=== PATIENT | male | born 1995 | race Caucasian/White ===

== ENCOUNTER 2022-01-02 17:45 | Emergency (ER) | payer SELFPAY ==
[~2022-01-02] VITALS: Ht 182.9 cm; Wt 63.5 kg
--- NOTE | 2022-01-02 17:56 | NUR ---
PATIENT [id number] FRM HOME, "ADMITS TO ETOH, POSSIBLE OD AND SMOKE INHALATION FROM BURNING BUILDING". CURRENTLY STBALE ON RA WITH NO SIGNS OF DISTRESS NOTED. PLACED ON MONITOR. PATIENT AWAITING TO BE SEEN BY MD. WILL CONTINUE TO MONITOR
--- NOTE | 2022-01-02 17:57 | NUR ---
PATIENT IS ON A HOLD WITH [employer] AT BEDSIDE.
[2022-01-02 19:52] LABS: BASOPHILS % (AUTO) 0.5 % (0.0-2.0); HEMATOCRIT 45 % (39-51); HEMOGLOBIN 15.3 g/dL (13.5-17.5); LYMPHOCYTES # (AUTO) 0.9 K/uL (0.8-4.8); LYMPHOCYTES % (AUTO) 10.2 % (20.0-44.0); MEAN CORPUSCULAR HGB CONC 34 g/dl (31.0-36.0); MEAN CORPUSCULAR VOLUME 81 fL (80-96); MONOCYTES # (AUTO) 0.2 K/uL (0.1-1.30); MONOCYTES % (AUTO) 2.5 % (2.0-12.0); NEUTROPHILS % (AUTO) 86.8 % (43.0-81.0); PLATELET COUNT (AUTO) 193 K/uL (150-450); WHITE BLOOD COUNT (AUTO) 9.2 K/uL (4.3-11.0)
[2022-01-02 19:53] LABS: CALCIUM, SERUM 9.4 mg/dL (8.5-10.1); CARBON DIOXIDE 28 mmol/L (21-32); CHLORIDE 102 mmol/L (98-107); GLUCOSE 95 mg/dL (74-106); POTASSIUM 4.6 mmol/L (3.5-5.1); SODIUM SERUM 139 mmol/L (136-145); UREA NITROGEN, BLOOD 17 mg/dL (7-18)
[2022-01-02 20:01] LABS: ALANINE AMINOTRANSFERASE 25 U/L (12-78); ALBUMIN 4.8 g/dL (3.4-5.0); ALCOHOL, BLOOD < 3 mg/dL (0-0); ALKALINE PHOSPHATASE 73 U/L (46-116); ASPARTATE AMINOTRANSFERASE 19 U/L (15-37); BILIRUBIN,DIRECT 0.2 mg/dL (0.0-0.2); BILIRUBIN,TOTAL 1.2 mg/dL (0.2-1.0); TOTAL PROTEIN, SERUM 8.5 g/dL (6.4-8.2)
[2022-01-02 20:05] LABS: ACETAMINOPHEN < 2 ug/ml (10-30)
[2022-01-02 20:14] LABS: ABG BASE EXCESS -4.2 mmol/L; ABG OXYGEN SATURATION 96.5 % (92.0-98.5); ABG PCO2 27.2 mmHg (35.0-45.0); ABG PH 7.444 (7.350-7.450); ABG PO2 86.1 mmHg (75.0-100.0); AaDO2 31.1 mmHg; MetHb 0.2 % (0.0-1.5); O2Hb 93.4 % (94.0-97.0); SITE, ABG Left Radial; VENT MODE, BG ROOM AIR
--- NOTE | 2022-01-02 21:02 | NUR ---
COVID SWAB COLLECTED
--- NOTE | 2022-01-02 21:34 | NUR ---
URINAL PROVIDED TO PT
--- NOTE | 2022-01-02 21:36 | NUR ---
URINE SAMPLE COLLECTED AND SENT TO LAB
[2022-01-02 22:06] LABS: BILIRUBIN,URINE NEGATIVE (NEGATIVE); COLOR,URINE YELLOW (YELLOW); LEUKOCYTE ESTERASE ,URINE NEGATIVE (NEGATIVE); NITRITE, URINE NEGATIVE (NEGATIVE); PH,URINE 6.5 (5.0-8.0); PROTEIN,URINE NEGATIVE (NEGATIVE); UGLUCOSE NEGATIVE (NEGATIVE); UROBILINOGEN,URINE 0.2 EU/dL (0.2)
--- NOTE | 2022-01-03 01:01 | NUR ---
PT IS SLEEPING, EASILY AROUSABLE WITH VERBAL STIMULI. CONNECTED TO MONITOR. SITTER WITHIN SIGHT. WILL CONTINUE TO MONITOR.
--- NOTE | 2022-01-03 02:15 | NUR ---
SEEN AND EVALUATED BY LYUBOV SAINZ
--- NOTE | 2022-01-03 10:57 | NUR ---
resource management planner faxed clinicals to [facility] [[id number], [place] [address] tel: ; fax:[phone] [facility] TEL: [phone] fax: [phone] [facility]:take [facility]([place]medicare/ tel:[phone] FAX:[phone]; [phone] [facility]: TEL: [phone] [facility] FAX [phone]\ resource management planner will follow-up with the facilities above for placement for male pt.
[2022-01-03 11:48] VITALS: BP 128/73
--- NOTE | 2022-01-03 13:39 | NUR ---
Pt. accepted at [facility] ([phone]). Pt. is accepted to the [facility] bed 02/[address] Ortiz. Nurse to nurse report phone number ([phone]).
--- NOTE | 2022-01-03 13:46 | NUR ---
[facility] TRANSPORT ETA 1600 VIA ETA.
--- NOTE | 2022-01-03 15:11 | NUR ---
REPORT GIVEN TO KAYLIE WHITE. TRANSPORTED IN STABLE CONDITION.
== END 2022-01-03 15:39 ==
LOC: ER 17:47
DX: R45.851 Suicidal ideations (principal); T58.8X1A Toxic effect of carbon monoxide from other source, accidental (unintentional), initial encounter; Y92.89 Other specified places as the place of occurrence of the external cause; Z20.822 Contact with and (suspected) exposure to COVID-19
CPT/HCPCS: 99285; 82803; 71045; 85025; 80048; 80076; 81003; 36415; 36600 ×2; 87426; 80143; 80320; 80307; C9803; G0480